=== PATIENT | female | born 1970 ===

== ENCOUNTER → 2018-09-13 | Outpatient (CLI) | payer BC ==
--- NOTE | 2018-09-13 13:17 | RADIOLOGY IMAGING REPORT ---
FACILITY: [facility] - [place] PATIENT NAME: Kyleigh Valera : 1970 MR: [id number] V: [id number] EXAM DATE: ORDERING PHYSICIAN: CASSANDRA DUMONT TECHNOLOGIST: Location: [facility] Patient: Kyleigh Valera : 1970 Visit/Account:[id number] Date of Sevice: 09/13/2018 CT Cervical Spine Indication: Neck pain status post cervical fusion Comparison: None available. Technique: Axial CT imaging of the cervical spine was performed. 2-D sagittal and coronal CT reforma ts were also obtained. One of the following dose optimization techniques was utilized in the performance of this exam: autom ated exposure control; adjustment of the mA and/or kV according to the patient's size; or use of an i terative reconstruction technique. Specific details can be referenced in the facility's radiology CT exam operational policy. Findings: No acute osseous or acute alignment abnormality. Vertebral body heights are well-maintained. Postoperative changes from cerclage wire surrounding the posterior elements spanning C3 C6 where ther e is near-complete osseous fusion posteriorly. Slight anterolisthesis of C4 on C5 noted as well. There is no acute osseous neural foraminal narrowing on the sagittal views. Limited views lung apices are unremarkable. Impression: 1. No acute osseous or acute alignment abnormality of the cervical spine 2. Postop changes from fusion as above with no hardware competition identified. Report Dictated By: Quintin Sahu MD at 09/13/2018 1:05 PM Report E-Signed By: Quintin Sahu MD at 09/13/2018 1:10 PM WSN:[id number]
== END ==
LOC: CT 01:39
PROVIDERS: ATTEND Orthopaedic Surgery
DX: M54.2 Cervicalgia (principal); Z98.1 Arthrodesis status
CPT/HCPCS: 72125

== ENCOUNTER → 2018-10-10 | Outpatient (CLI) | payer BC ==
[~2018-10-10] MED LIST: ACYC800T99; ESTR-33; MEDR2.5T34
== END ==
LOC: LAB 10:46
PROVIDERS: ATTEND Nurse Practitioner Family
DX: R39.11 Hesitancy of micturition (principal)
CPT/HCPCS: 81001